=== PATIENT | male | born 1970 | race Caucasian/White ===

== ENCOUNTER 2018-02-14 22:24 | Emergency (ER) | payer OTHER ==
[~2018-02-14] VITALS: Ht 170.2 cm; Wt 102.1 kg
--- NOTE | 2018-02-14 23:12 | ED UPPER/LOWER EXTREMITY COMPL ---
History of Present Illness General Chief Complaint: Lower Extremity Injury Stated Complaint: "I TURNED MY ANKLE" Source: patient Exam Limitations: no limitations Vital Signs & Intake/Output Vital Signs & Intake/Output see nursing note Allergies Coded Allergies: No Known Allergies (02/14/18) Triage Note: RECEIVED 47 YO MALE C/O TWISTED RIGHT ANKLE 4 WEEKS AGO AND NEVER WAS SEEN. PT TWISTED RIGHT ANKLE AGAIN OVER THE WEEKEND AND IS UNABLE TO WEIGHT BEAR. RIGHT ANKLE PAIN, SWELLING AND INABILITY TO WEIGHT BEAR. Triage Nurses Notes Reviewed? yes Onset: Last week Duration: week(s): (1) Timing: no prior history Severity: moderate Severity Numbers: 8 Pain/Injury Location: Right: Ankle. Method of Injury: twisted Modifying Factors: Improves With: immobilization. Worsens With: movement. HPI: Patient is a 47-year-old male presenting to the emergency department complaining of right ankle pain and swelling 1weeks. Patient reports that he rolled that about one week ago and then reinjured it 3 days ago. Since then pain has been progressively getting worse. Patient reports that he has been intermittently elevating and icing the affected extremity without much relief. Has been taking ibuprofen today with little relief in pain. Denies any numbness or tingling. No calf pain. Denies any nausea or vomiting fevers or chills chest pain or shortness of breath. (Linda Bullard) Past History Travel History Traveled to [place] past 21 day No Medical History Any Pertinent Medical History? see below for history Neurological: NONE EENT: NONE Cardiovascular: hypertension Respiratory: NONE Gastrointestinal: NONE Hepatic: NONE Renal: NONE Musculoskeletal: NONE Psychiatric: anxiety Endocrine: NONE Blood Disorders: NONE Cancer(s): NONE Surgical History Surgical History: non-contributory Psychosocial History What is your primary language Yi Tobacco Use: Never used Family History Hx Contributory? No (Linda Bullard) Review of Systems Review of Systems Constitutional: Reports: no symptoms. Comments Review of systems: See HPI, All other systems negative. Constitutional, no chills fever or weight loss HEENT: No visual changes no sore throat no congestion Cardiovascular: No chest pain ,palpitation Skin, no jaundice no rashes Respiratory: No dyspnea cough sputum or hemoptysis GI: No nausea no vomiting Muscle skeletal: no back pain, no neck pain, Neurologic: No numbness no confusion Psych: No stress anxiety Immunology: No splenectomy or history of AIDS (Kavon GOMEZ,Linda) Physical Exam Physical Exam General Appearance: well developed/nourished, no apparent distress, alert, awake , comfortable Comments: Well-developed well-nourished person in no acute distress HEENT: Atraumatic, normocephalic Neck: Normal inspection Cardiovascular: Pedal pulses are 2+ bilaterally. Respiratory: No respiratory distress. Extremity: Right Ankle with moderate tenderness laterally over the lateral ligaments. No bony tenderness. No medial tenderness. Range of motion is near full but somewhat limited due to pain. No instability is noted. Skin is intact, mild swelling and ecchymosis laterally. The foot is neurovascularly intact with sensation and motor grossly intact. There is no foot tenderness or fifth metatarsal tenderness. Able to move all toes. No calf tenderness to palpation bilaterally. Pedal pulses are 2+ bilaterally. Neuro: Alert oriented x3, motor sensory normal Skin: No appreciable rash on exposed skin, skin is warm and dry. Psych: Mood and affect is normal, memory and judgment is normal. (Kavon GOMEZ,Linda) Progress Differential Diagnosis: contusion, dislocation, fracture, sprain, tendon injury Plan of Care: Orders Procedure Date/time Status Durable Medical Equipment 02/15 2320 Active Diagnostic Imaging: Viewed by Me: Radiology Read. Discussed w/RAD: Radiology Read. Radiology Impression: PATIENT: AGUSTINA HERMOSILLO PRESENT AGE: 47 PATIENT ACCOUNT NO: [id number] : 71 LOCATION: [facility] ORDERING PHYSICIAN: [place] GOMEZ SERVICE DATE: 02/14/18 EXAM TYPE: RAD - XRY-ANKLE 3 OR MORE VIEWS R; XRY-FOOT COMPLETE, R EXAMINATION: RIGHT FOOT AND ANKLE 6 VIEWS CLINICAL INFORMATION: Right foot and ankle pain following injury. COMPARISON: None. TECHNIQUE: AP, lateral, oblique views of the right foot were obtained in addition to AP, lateral and oblique views of the right ankle. FINDINGS: There are no fractures or dislocations. There is hallux valgus measuring 30 degrees. There is mild medial uncovering of the first MTP joint. There is narrowing to the first MTP joint. There is mild overlying soft tissue swelling. There is mild soft tissue swelling about the medial and lateral malleoli. No ankle joint effusion is identified. IMPRESSION: No evidence for acute osseous injury. Mild soft tissue swelling. Hallux valgus. DICTATED BY: Charly Griffith MD DATE/TIME DICTATED:02/14/182310 [employer] DR[employer]:YULY DATE/TIME TRANSCRIBED:02/14/182310 CONFIDENTIAL, DO NOT COPY WITHOUT APPROPRIATE AUTHORIZATION. <Electronically signed in Other Vendor System> SIGNED BY: Charly Griffith MD 02/14/182315 (Linda Bullard) Departure Departure Time of Disposition: 2317 Disposition: HOME OR SELF CARE Condition: Stable Clinical Impression Primary Impression: Ankle sprain Qualifiers: Encounter type: initial encounter Involved ligament of ankle: unspecified ligament Laterality: right Qualified Code: S93.401A - Sprain of unspecified ligament of right ankle, initial encounter Referrals: Luis Eduardo GOOD,Manuel Aldana (PCP/Family) Additional Instructions: Follow-up with your primary care physician in the next 5-7 days, call to make an appointment. Rest ice and elevate affected extremity. Take anti-inflammatory as previously directed. Wear David wrap and Aircast as directed. Use crutches for the next several days. Return for worsening symptoms or concerns. Departure Forms: Customer Survey General Discharge Information (Linda Bullard) PA/PARK MANAGER Co-Sign Statement Statement: ED Attending supervision documentation- I saw and evaluated the patient. I have also reviewed all the pertinent lab results and diagnostic results. I agree with the findings and the plan of care as documented in the PA's/PARK MANAGER's documentation. x I have reviewed the ED Record and agree with the PA's/PARK MANAGER's documentation. [] Additions or exceptions (if any) to the PAs/PARK MANAGER's note and plan are summarized below: [] (Izzy GOOD,Marco) Procedures Splinting Location: right ankle Manual Alignment Performed: No Pre-Made Type: velcro Splint: air cast Splint Applied By: splint applied by other Pre-Proc Neuro Vasc Exam: normal Post-Proc Neuro Vasc Exam: normal Progress: tolerated well (Linda Bullard)
--- NOTE | 2018-02-14 23:16 | RADIOLOGY REPORT ---
EXAMINATION: RIGHT FOOT AND ANKLE 6 VIEWS CLINICAL INFORMATION: Right foot and ankle pain following injury. COMPARISON: None. TECHNIQUE: AP, lateral, oblique views of the right foot were obtained in addition to AP, lateral and oblique views of the right ankle. FINDINGS: There are no fractures or dislocations. There is hallux valgus measuring 30 degrees. There is mild medial uncovering of the first MTP joint. There is narrowing to the first MTP joint. There is mild overlying soft tissue swelling. There is mild soft tissue swelling about the medial and lateral malleoli. No ankle joint effusion is identified. IMPRESSION: No evidence for acute osseous injury. Mild soft tissue swelling. Hallux valgus.
== END 2018-02-14 23:39 ==
LOC: ERH 22:24
DX: S93.401A Sprain of unspecified ligament of right ankle, initial encounter (principal); X58.XXXA Exposure to other specified factors, initial encounter; Y92.9 Unspecified place or not applicable; Y93.9 Activity, unspecified
CPT/HCPCS: 73610-RT; 73630-RT